=== PATIENT | female | born 1990 | race African-American/Black ===

== ENCOUNTER 2024-02-09 12:02 | Emergency (ER) | payer OTHER ==
[~2024-02-09] VITALS: Ht 170.2 cm; Wt 68.0 kg
[2024-02-09 12:12] VITALS: BP 146/65; PULSE 86; RESP 16; O2SAT 99
== END 2024-02-09 12:59 | disposition left against medical advice (07) ==
LOC: ER 12:02
DX: H57.10 Ocular pain, unspecified eye (principal); Z53.21 Procedure and treatment not carried out due to patient leaving prior to being seen by health care provider